=== PATIENT | male | born 1955 | race Caucasian/White ===

== ENCOUNTER 2022-06-14 21:50 | Emergency (ER) | payer MEDICAID ==
[~2022-06-14] VITALS: Ht 170.2 cm; Wt 79.8 kg
[2022-06-14 22:08] VITALS: BP_SYST 142
--- NOTE | 2022-06-14 22:50 | NUR ---
Pt brought by self, A&Ox4, pt presents to ER with R hand pain/ swelling , skin pink and warm,cap refill <3, VSS.
== END 2022-06-15 02:07 | disposition home or self-care (01) ==
LOC: SED 21:50
DX: S63.501A Unspecified sprain of right wrist, initial encounter (principal); Z88.0 Allergy status to penicillin; Z79.899 Other long term (current) drug therapy; W27.8XXA Contact with other nonpowered hand tool, initial encounter; Y93.89 Activity, other specified; Y92.89 Other specified places as the place of occurrence of the external cause; Y99.8 Other external cause status
CPT/HCPCS: 99283